=== PATIENT | female | born 1980 | race Caucasian/White ===

== ENCOUNTER 2017-03-17 11:38 | Emergency (ER) | payer MEDICAID ==
[~2017-03-17] VITALS: Ht 157.5 cm; Wt 78.7 kg
[~2017-03-17 11:38] MED LIST: SULF1TAB24 PO
[2017-03-17] MEDS ORDERED: ONDANSETRON ODT 4 MG ONE (12:17)
[2017-03-17] MEDS ORDERED: ONDANSETRON ODT 4 MG PO ONE (12:30)
[2017-03-17 12:52] VITALS: BP 117/76
== END 2017-03-17 12:55 | disposition home or self-care (01) ==
LOC: ED 12:27
DX: N30.01 Acute cystitis with hematuria (principal); F17.210 Nicotine dependence, cigarettes, uncomplicated; Z90.49 Acquired absence of other specified parts of digestive tract; Z90.710 Acquired absence of both cervix and uterus; Z88.0 Allergy status to penicillin; Z88.1 Allergy status to other antibiotic agents
CPT/HCPCS: 81001; 87077; 87086; 99284; Q0162; 87186

== ENCOUNTER 2017-04-04 01:29 | Emergency (ER) | payer MEDICAID ==
[~2017-04-04] VITALS: Ht 154.9 cm; Wt 78.6 kg
[2017-04-04] MEDS ORDERED: SODIUM CHLORIDE FLUSH 10ML SYR IVF ONE (02:00)
[2017-04-04] MEDS ORDERED: KETOROLAC 30 MG/1 ML IVPush ONE (02:00)
[2017-04-04] MEDS ORDERED: ONDANSETRON 2MG/ML, 2ML IVPush ONE (02:00)
[2017-04-04] MEDS ORDERED: HYDROmorphone 1 MG/ML, 1ML IVPush ONE (02:00)
[2017-04-04] MEDS ORDERED: SODIUM CHLORIDE 0.9% 1,000ML IVBOLUS ONE (02:00)
[2017-04-04] MEDS ORDERED: KETOROLAC 30 MG/1 ML ONE (02:09)
[2017-04-04] MEDS ORDERED: HYDROmorphone 1 MG/ML, 1ML ONE (02:09)
[2017-04-04] MEDS ORDERED: ONDANSETRON 2MG/ML, 2ML ONE (02:09)
[2017-04-04 02:44] LABS: BLOOD UREA NITROGEN 11 mg/dL (7-18)
[2017-04-04 03:16] LABS: PATH.CAST-FLAG NOT PRESENT; SPERM-FLAG NOT PRESENT; SRC-FLAG NOT PRESENT; XTAL-FLAG NOT PRESENT; YLC-FLAG NOT PRESENT
[2017-04-04 03:50] VITALS: BP 107/55
== END 2017-04-04 04:56 | disposition home or self-care (01) ==
LOC: ED 02:13
DX: N23 Unspecified renal colic (principal); Z90.710 Acquired absence of both cervix and uterus
CPT/HCPCS: 36415; 80048; 81001; 82040; 85025; 87077; 87086; 87186; 96361; 96374; 96375; 99284; J1170; J1885; J2405; J7030

== ENCOUNTER 2017-05-24 11:15 | Emergency (ER) | payer MEDICAID ==
[~2017-05-24] VITALS: Ht 154.9 cm; Wt 78.3 kg
[2017-05-24] MEDS ORDERED: ONDANSETRON 2MG/ML, 2ML IVPush ONE (12:30)
[2017-05-24] MEDS ORDERED: SODIUM CHLORIDE 0.9% 1,000ML IVBOLUS ONE (12:30)
[2017-05-24] MEDS ORDERED: SODIUM CHLORIDE FLUSH 10ML SYR IVF ONE (12:30)
[2017-05-24] MEDS ORDERED: ONDANSETRON 2MG/ML, 2ML ONE (12:36)
[2017-05-24] MEDS ORDERED: HYDROmorphone 1 MG/ML, 1ML IV ONE (13:00)
[2017-05-24] MEDS ORDERED: PHENAZOPYRIDINE 200 MG TABLET PO ONE (13:00)
[2017-05-24 13:04] LABS: BLOOD UREA NITROGEN 7 mg/dL (7-18)
[2017-05-24] MEDS ORDERED: PHENAZOPYRIDINE 200 MG TABLET ONE (13:12)
[2017-05-24] MEDS ORDERED: HYDROmorphone 1 MG/ML, 1ML ONE (13:12)
[2017-05-24 14:27] VITALS: BP 109/72
== END 2017-05-24 14:30 | disposition home or self-care (01) ==
LOC: ED 11:54
DX: N30.90 Cystitis, unspecified without hematuria (principal); Z90.710 Acquired absence of both cervix and uterus; Z90.49 Acquired absence of other specified parts of digestive tract; Z88.0 Allergy status to penicillin
CPT/HCPCS: 36415; 80048; 81001; 82040; 83605; 84145; 85025; 87040; 87077; 87086; 96361; 96374; 96375; 99284; J1170; J2405; J7030; 87186

== ENCOUNTER 2017-06-30 14:16 | Emergency (ER) | payer MEDICAID ==
[~2017-06-30] VITALS: Ht 157.5 cm; Wt 77.1 kg
[2017-06-30] MEDS ORDERED: ONDANSETRON 2MG/ML, 2ML IVPush ONE (15:00)
[2017-06-30] MEDS ORDERED: SODIUM CHLORIDE 0.9% 1,000ML IVBOLUS ONE (15:00)
[2017-06-30] MEDS ORDERED: SODIUM CHLORIDE FLUSH 10ML SYR IVF ONE (15:00)
[2017-06-30] MEDS ORDERED: HYDROmorphone 1 MG/ML, 1ML ONE ×2 (15:13→16:48)
[2017-06-30] MEDS ORDERED: ONDANSETRON 2MG/ML, 2ML ONE (15:13)
[2017-06-30 15:23] LABS: HEMATOCRIT 45.9 % (34.6-47.8); HEMOGLOBIN 15.4 g/dL (11.7-16.4); WHITE BLOOD COUNT 13.7 x10^3/uL (3.4-10)
[2017-06-30 15:34] LABS: BLOOD UREA NITROGEN 8 mg/dL (7-18)
[2017-06-30] MEDS: HYDROmorphone 1 MG/ML, 1ML IVPush PRN ×2 (16:02→17:02)
[2017-06-30] MEDS ORDERED: CEFTRIAXONE PMX 1GM/50ML 50 ML IV ONE (16:30)
[2017-06-30] MEDS ORDERED: PHENAZOPYRIDINE 200 MG TABLET PO ONE (16:30)
[2017-06-30] MEDS ORDERED: PHENAZOPYRIDINE 200 MG TABLET ONE (16:48)
[2017-06-30] MEDS ORDERED: CEFTRIAXONE PMX 1GM/50ML 50 ML ONE (16:48)
[2017-06-30 18:15] VITALS: BP 98/59
== END 2017-06-30 18:19 | disposition home or self-care (01) ==
LOC: ED 17:55
DX: N10 Acute pyelonephritis (principal); N30.00 Acute cystitis without hematuria; Z90.49 Acquired absence of other specified parts of digestive tract; Z90.710 Acquired absence of both cervix and uterus; Z88.8 Allergy status to other drugs, medicaments and biological substances; Z88.1 Allergy status to other antibiotic agents; Z88.5 Allergy status to narcotic agent; Z88.2 Allergy status to sulfonamides; Z91.018 Allergy to other foods
CPT/HCPCS: 36415; 80048; 81001; 82040; 85025; 87077; 87086; 87186; 96361; 96365; 96375; 96376; 99285; J0696; J1170; J2405; J7030

== ENCOUNTER 2017-07-26 18:30 | Emergency (ER) | payer MEDICAID ==
[~2017-07-26] VITALS: Ht 157.5 cm; Wt 77.7 kg
[2017-07-26] MEDS ORDERED: SODIUM CHLORIDE FLUSH 10ML SYR IVF ONE (19:00)
[2017-07-26] MEDS ORDERED: SODIUM CHLORIDE 0.9% 1,000ML IVBOLUS ONE (19:00)
[2017-07-26 19:15] LABS: HEMATOCRIT 49.8 % (34.6-47.8); HEMOGLOBIN 16.7 g/dL (11.7-16.4); WHITE BLOOD COUNT 8.8 x10^3/uL (3.4-10)
[2017-07-26 19:31] LABS: ASPARTATE AMINO TRANSFERASE 19 U/L (15-37); BLOOD UREA NITROGEN 13 mg/dL (7-18)
[2017-07-26] MEDS ORDERED: HYDROmorphone 1 MG/ML, 1ML ONE (20:34)
[2017-07-26] MEDS ORDERED: HYDROmorphone 1 MG/ML, 1ML IVPush PRN (21:00)
[2017-07-26 21:40] VITALS: BP 119/76
== END 2017-07-26 21:40 | disposition home or self-care (01) ==
LOC: ED 19:06
DX: N32.89 Other specified disorders of bladder (principal); Q61.5 Medullary cystic kidney; Z88.1 Allergy status to other antibiotic agents; Z88.0 Allergy status to penicillin; Z88.8 Allergy status to other drugs, medicaments and biological substances; Z90.710 Acquired absence of both cervix and uterus; Z90.49 Acquired absence of other specified parts of digestive tract
CPT/HCPCS: 36415; 80053; 81001; 83690; 84703; 85025; 87077; 87086; 87186; 96361; 96374; 99284; J1170; J7030

== ENCOUNTER 2017-07-28 23:00 | Inpatient (IN) | payer MEDICAID ==
[~2017-07-28] VITALS: Ht 157.5 cm; Wt 79.8 kg
[2017-07-28] MEDS ORDERED: ONDANSETRON ODT 4 MG PO ONE (23:30)
[2017-07-28] MEDS ORDERED: HYDROcodone/APAP 5/325 TABLET PO ONE (23:30)
[2017-07-28] MEDS ORDERED: KETOROLAC 30 MG/1 ML IM ONE (23:30)
[2017-07-28 23:46] LABS: HEMATOCRIT 46.9 % (34.6-47.8); HEMOGLOBIN 15.7 g/dL (11.7-16.4); WHITE BLOOD COUNT 9.4 x10^3/uL (3.4-10)
[2017-07-28] MEDS ORDERED: ONDANSETRON ODT 4 MG ONE (23:49)
[2017-07-28] MEDS ORDERED: HYDROcodone/APAP 5/325 TABLET ONE (23:50)
[2017-07-28] MEDS ORDERED: KETOROLAC 30 MG/1 ML ONE (23:50)
[2017-07-28 23:59] LABS: ASPARTATE AMINO TRANSFERASE 29 U/L (15-37); BLOOD UREA NITROGEN 14 mg/dL (7-18)
[2017-07-29 00:54] LABS: PATH.CAST-FLAG NOT PRESENT; SPERM-FLAG NOT PRESENT; SRC-FLAG NOT PRESENT; XTAL-FLAG NOT PRESENT; YLC-FLAG NOT PRESENT
[2017-07-29] MEDS ORDERED: SODIUM CHLORIDE 0.9% 1,000 ML IV ONE (01:50)
[2017-07-29] MEDS ORDERED: MORPHINE SULFATE 4 MG/ML, 1ML IVPush PRN (02:00)
[2017-07-29] MEDS ORDERED: CEFTRIAXONE PMX 1GM/50ML 50 ML IV ONE (02:00)
[2017-07-29] MEDS ORDERED: ONDANSETRON 2MG/ML, 2ML IVPush ONE (02:00)
[2017-07-29] MEDS ORDERED: SODIUM CHLORIDE FLUSH 10ML SYR IVF ONE (02:00)
[2017-07-29] MEDS ORDERED: morphine SULFATE 10 MG/ML, 1ML IVPush PRN (02:30)
[2017-07-29] MEDS ORDERED: ONDANSETRON 2MG/ML, 2ML IVPush PRN ×2 (02:30→12:30)
[2017-07-29] MEDS ORDERED: HYDROmorphone 1 MG/ML, 1ML IV PRN ×2 (02:30→12:30)
[2017-07-29] MEDS ORDERED: CEFTRIAXONE PMX 2GM/50ML 50 ML ONE (02:34)
[2017-07-29] MEDS: CEFTRIAXONE PMX 2GM/50ML 50 ML IV SCH (02:37)
[2017-07-29] MEDS ORDERED: HYDROmorphone 1 MG/ML, 1ML ONE ×2 (02:42→11:56)
[2017-07-29] MEDS ORDERED: ONDANSETRON 2MG/ML, 2ML ONE ×2 (02:42→11:56)
[2017-07-29 03:09] VITALS: BP 132/87
[2017-07-29] MEDS: SODIUM CHLORIDE 0.9% 1,000 ML IV SCH ×4 (03:41→23:36)
[2017-07-29 04:04] VITALS: BP 132/87
[2017-07-29] MEDS: HYDROmorphone 1 MG/ML, 1ML IV PRN ×5 (06:43→22:46)
[2017-07-29 07:05] VITALS: BP 101/70
[2017-07-29] MEDS: ENOXAPARIN 40 MG/0.4 ML SQ SCH (09:00)
[2017-07-29] MEDS ORDERED: SUCCINYLCHOLINE 20 MG/ML, 10ML ONE (11:56)
[2017-07-29] MEDS ORDERED: DEXAMETHASONE 4 MG/ML, 1ML ONE (11:56)
[2017-07-29] MEDS ORDERED: FENTANYL PF 100 MCG/2ML ONE (11:56)
[2017-07-29] MEDS ORDERED: ROCURONIUM 10 MG/ML ONE (11:56)
[2017-07-29] MEDS ORDERED: PROPOFOL 10 MG/ML, 20ML ONE (11:56)
[2017-07-29] MEDS ORDERED: LABETALOL 5MG/ML, 20ML IV PRN (12:30)
[2017-07-29] MEDS ORDERED: OXYcodone 5 MG/5 ML ORAL.SOL UDC PO PRN (12:30)
[2017-07-29] MEDS ORDERED: FENTANYL PF 100 MCG/2ML IV PRN (12:30)
[2017-07-29] MEDS ORDERED: ACETAMINOPHEN 325 MG TABLET PO PRN (12:30)
[2017-07-29] MEDS ORDERED: PROMETHAZINE 25 MG/ML, 1ML IV PRN (12:30)
[2017-07-29] MEDS ORDERED: hydrALAzine 20 MG/ML, 1ML IV PRN (12:30)
[2017-07-29] MEDS ORDERED: MIDAZOLAM 1 MG/ML, 2ML IV PRN (12:30)
[2017-07-29] MEDS ORDERED: MEPERIDINE/PF 25MG/0.5ML IVPush PRN (12:30)
[2017-07-29 14:35] VITALS: BP 107/73
[2017-07-29 14:46] VITALS: BP 102/59
[2017-07-29 20:24] VITALS: BP 107/77
[2017-07-29] MEDS: PHENAZOPYRIDINE 200 MG TABLET PO PRN (21:30)
[2017-07-30] MEDS: CEFTRIAXONE PMX 2GM/50ML 50 ML IV SCH (02:15)
[2017-07-30] MEDS: HYDROmorphone 1 MG/ML, 1ML IV PRN ×2 (02:54→07:43)
[2017-07-30 03:59] VITALS: BP 102/69
[2017-07-30] MEDS: PHENAZOPYRIDINE 200 MG TABLET PO PRN (05:12)
[2017-07-30 06:09] LABS: HEMATOCRIT 41.9 % (34.6-47.8); HEMOGLOBIN 13.9 g/dL (11.7-16.4); WHITE BLOOD COUNT 12.6 x10^3/uL (3.4-10)
[2017-07-30 06:23] LABS: BLOOD UREA NITROGEN 18 mg/dL (7-18)
[2017-07-30 07:25] VITALS: BP 115/77
[2017-07-30] MEDS: ENOXAPARIN 40 MG/0.4 ML SQ SCH (09:56)
[2017-07-30] MEDS ORDERED: HYDR-3240 PO (10:47)
[2017-07-30] MEDS ORDERED: CEFD300C37 PO (10:47)
[2017-07-30] MEDS ORDERED: HYDROcodone/APAP 5/325 TABLET PO ONE (11:00)
[2017-07-30] MEDS ORDERED: CALCIUM CARBONATE 500 MG TAB.CHEW PO ONE (11:00)
[2017-07-30 12:26] VITALS: BP 112/77
== END 2017-07-30 13:16 | disposition home or self-care (01) | DRG 669 ==
LOC: ED 23:29 → EDIP 07-29 02:05 → 4NOR 07-29 03:02 → DCLOUNGE 07-30 12:54
PROVIDERS: ADMIT Internal Medicine; ATTEND Internal Medicine
PROC: 0T778DZ Dilation of Left Ureter with Intraluminal Device, Via Natural or Artificial Opening Endoscopic (ICD-10-PCS; 2017-07-29)
PROC: 0TC78ZZ Extirpation of Matter from Left Ureter, Via Natural or Artificial Opening Endoscopic (ICD-10-PCS; principal; 2017-07-29 12:00)
DX: N13.2 Hydronephrosis with renal and ureteral calculous obstruction (principal); F17.200 Nicotine dependence, unspecified, uncomplicated; N10 Acute pyelonephritis; K42.9 Umbilical hernia without obstruction or gangrene; N28.1 Cyst of kidney, acquired; Z87.442 Personal history of urinary calculi; Z90.710 Acquired absence of both cervix and uterus
CPT/HCPCS: 36415; 74176; 80048; 80053; 81001; 82360; 84703; 85025; 87086; 88300; 99285; C1726; J0696; J1100; J1170; J1650; J2405; J2704; J3010; Q0162; C1769; C2617; J0330; J7030

== ENCOUNTER 2017-08-01 00:38 | Emergency (ER) | payer MEDICAID ==
[~2017-08-01] VITALS: Ht 157.5 cm; Wt 80.7 kg
[~2017-08-01 00:38] MED LIST changes: +CEFD300C37 PO; +HYDR-3240 PO
[2017-08-01] MEDS ORDERED: SODIUM CHLORIDE 0.9% 1,000ML IV ONE (01:00)
[2017-08-01] MEDS ORDERED: KETOROLAC 30 MG/1 ML IVPush ONE (01:00)
[2017-08-01] MEDS ORDERED: ONDANSETRON 2MG/ML, 2ML IVPush ONE (01:00)
[2017-08-01] MEDS ORDERED: SODIUM CHLORIDE FLUSH 10ML SYR IVF ONE (01:00)
[2017-08-01] MEDS ORDERED: HYDROmorphone 1 MG/ML, 1ML ONE ×2 (01:06→01:39)
[2017-08-01] MEDS ORDERED: KETOROLAC 30 MG/1 ML ONE (01:06)
[2017-08-01] MEDS ORDERED: ONDANSETRON 2MG/ML, 2ML ONE (01:06)
[2017-08-01 01:19] LABS: PATH.CAST-FLAG NOT PRESENT; SPERM-FLAG NOT PRESENT; SRC-FLAG NOT PRESENT; XTAL-FLAG NOT PRESENT; YLC-FLAG NOT PRESENT
[2017-08-01 01:23] LABS: HEMATOCRIT 48.6 % (34.6-47.8); HEMOGLOBIN 16.3 g/dL (11.7-16.4); WHITE BLOOD COUNT 12.2 x10^3/uL (3.4-10)
[2017-08-01] MEDS: HYDROmorphone 1 MG/ML, 1ML IVPush PRN ×2 (01:23→01:49)
[2017-08-01 01:33] LABS: BLOOD UREA NITROGEN 15 mg/dL (7-18)
[2017-08-01 01:38] LABS: ASPARTATE AMINO TRANSFERASE 61 U/L (15-37)
[2017-08-01 02:48] VITALS: BP 102/78
== END 2017-08-01 03:39 | disposition home or self-care (01) ==
LOC: ED 01:41
DX: R10.9 Unspecified abdominal pain (principal); N20.2 Calculus of kidney with calculus of ureter; Z90.710 Acquired absence of both cervix and uterus; Z90.49 Acquired absence of other specified parts of digestive tract; Z88.1 Allergy status to other antibiotic agents
CPT/HCPCS: 36415; 74000; 76770; 80053; 81001; 84703; 85025; 87086; 96361; 96374; 96375; 99285; J1170; J1885; J2405; J7030

== ENCOUNTER 2017-10-10 22:34 | Emergency (ER) | payer MEDICAID ==
[~2017-10-10] VITALS: Ht 157.5 cm; Wt 80.1 kg
[2017-10-10] MEDS ORDERED: SODIUM CHLORIDE 0.9% 1,000 ML IV ONE (23:19)
[2017-10-10] MEDS ORDERED: SODIUM CHLORIDE 0.9% 1,000ML IVBOLUS ONE (23:30)
[2017-10-10] MEDS ORDERED: ONDANSETRON 2MG/ML, 2ML IVPush ONE (23:30)
[2017-10-10] MEDS ORDERED: SODIUM CHLORIDE FLUSH 10ML SYR IVF ONE (23:30)
[2017-10-10] MEDS: HYDROmorphone 1 MG/ML, 1ML IVPush PRN (23:44)
[2017-10-10 23:48] LABS: HEMATOCRIT 45.1 % (34.6-47.8); HEMOGLOBIN 15.4 g/dL (11.7-16.4); WHITE BLOOD COUNT 6.6 x10^3/uL (3.4-10)
[2017-10-10 23:53] LABS: BLOOD UREA NITROGEN 11 mg/dL (7-18)
[2017-10-11] MEDS ORDERED: LORazepam 2 MG/ML, 1ML IVPush ONE
[2017-10-11] MEDS: HYDROmorphone 1 MG/ML, 1ML IVPush PRN (01:18)
[2017-10-11 03:28] VITALS: BP 106/68
== END 2017-10-11 03:36 | disposition home or self-care (01) ==
LOC: ED 10-11 00:11
DX: N93.9 Abnormal uterine and vaginal bleeding, unspecified (principal); F17.200 Nicotine dependence, unspecified, uncomplicated; Z90.49 Acquired absence of other specified parts of digestive tract
CPT/HCPCS: 36415; 76830; 80048; 82040; 85025; 96361; 96374; 96375; 96376; 99285; J1170; J2060; J2405; J7030

== ENCOUNTER 2018-02-12 11:23 | Emergency (ER) | payer MEDICAID ==
[~2018-02-12] VITALS: Ht 154.9 cm; Wt 84.3 kg
[2018-02-12] MEDS ORDERED: SERT25TA PO (11:51)
[2018-02-12] MEDS ORDERED: TAMS-11 PO (11:51)
[2018-02-12] MEDS ORDERED: SODIUM CHLORIDE FLUSH 10ML SYR IVF ONE (12:00)
[2018-02-12 12:41] LABS: BASOPHILS # (AUTO) 0.08 x10^3/uL (0-0.1); BASOPHILS % (AUTO) 1 % (0-1); EOSINOPHILS # (AUTO) 0.21 x10^3/uL (0-0.4); EOSINOPHILS % (AUTO) 3 % (1-7); LYMPHOCYTES # (AUTO) 2.42 x10^3/uL (1-3.4); LYMPHOCYTES % (AUTO) 34 % (22-44); MD NO; MEAN CORPUSCULAR HEMOGLOBIN 34.3 pg (27.0-34.8); MEAN CORPUSCULAR HGB CONC 34.1 g/dL (32.4-35.8); MEAN CORPUSCULAR VOLUME 100.5 fL (80-100); MEAN PLATELET VOLUME 7.9 fL (7.4-10.4); MONOCYTES % (AUTO) 7 % (2-9); NEUTROPHILS # (AUTO) 3.92 x10^3/uL (1.8-6.8); NEUTROPHILS % (AUTO) 55 % (42-75); PLATELET COUNT 345 x10^3/uL (130-400); RED BLOOD COUNT 4.23 x10^6/uL (3.82-5.3); RED CELL DISTRIBUTION WIDTH 13.8 % (9.6-15.2)
[2018-02-12 12:49] LABS: INTERNATIONAL NORMALIZED RATIO 0.95 (0.93-1.1); PROTHROMBIN TIME 9.8 Seconds (9.6-11.5)
[2018-02-12 12:54] LABS: ALANINE AMINOTRANSFERASE 24 U/L (12-78); ALBUMIN 3.9 g/dL (3.4-5.0); ANION GAP 8 mmol/L (5-15); CALCIUM 9.2 mg/dL (8.5-10.1); CHLORIDE 103 mmol/L (98-107); CREATININE 0.83 mg/dL (0.55-1.02)
[2018-02-12 12:58] LABS: ALKALINE PHOSPHATASE 69 U/L (45-117); BILIRUBIN,TOTAL 0.5 mg/dL (0.2-1.0); TOTAL PROTEIN 7.9 g/dL (6.4-8.2); TROPONIN I < 0.015 ng/mL (0.000-0.045)
[2018-02-12] MEDS ORDERED: ONDANSETRON ODT 4 MG ONE (12:58)
[2018-02-12] MEDS ORDERED: FENTANYL PF 100 MCG/2ML ONE (12:59)
[2018-02-12] MEDS ORDERED: ONDANSETRON ODT 4 MG PO ONE (13:00)
[2018-02-12] MEDS ORDERED: FENTANYL PF 100 MCG/2ML IV ONE ×2 (13:00→15:00)
[2018-02-12 14:12] LABS: MICROSCOPIC INDICATED
[2018-02-12 14:42] LABS: CULTURE INDICATED? YES
[2018-02-12] MEDS ORDERED: MORPHINE SULFATE 4 MG/ML, 1ML ONE ×2 (16:06→16:14)
[2018-02-12] MEDS ORDERED: DIPHENHYDRAMINE 50 MG/ML, 1ML ONE (16:06)
[2018-02-12] MEDS ORDERED: DIPHENHYDRAMINE 50 MG/ML, 1ML IVPush ONE (16:30)
[2018-02-12] MEDS ORDERED: MORPHINE SULFATE 4 MG/ML, 1ML IVPush PRN (16:30)
[2018-02-12] MEDS ORDERED: OMNIPAQUE 350 MG/ML, 100ML BOTTLE ONE (17:02)
[2018-02-12 17:31] VITALS: BP 113/54
== END 2018-02-12 17:51 | disposition home or self-care (01) ==
LOC: ED 13:24
DX: N30.00 Acute cystitis without hematuria (principal); R10.11 Right upper quadrant pain; Z90.710 Acquired absence of both cervix and uterus; Z87.442 Personal history of urinary calculi
CPT/HCPCS: 36415; 71046; 71275; 74176; 80053; 81001; 83605; 84484; 85025; 85610; 85730; 87040; 87077; 87086; 93005; 96374; 96375; 96376; 99285; J1200; J3010; Q0162; Q9967; 87186

== ENCOUNTER 2018-06-12 19:22 | Emergency (ER) | payer MEDICAID, OTHER ==
[~2018-06-12] VITALS: Ht 154.9 cm; Wt 86.2 kg
[~2018-06-12 19:22] MED LIST changes: +SERT25TA PO; +TAMS-11 PO
[2018-06-12 20:59] VITALS: BP 154/78
== END 2018-06-12 21:02 | disposition home or self-care (01) ==
LOC: ED 20:56
DX: S06.0X0A Concussion without loss of consciousness, initial encounter (principal); F17.200 Nicotine dependence, unspecified, uncomplicated; V59.59XA Passenger in pick-up truck or van injured in collision with other motor vehicles in traffic accident, initial encounter; Y93.89 Activity, other specified; Y99.8 Other external cause status; Y92.410 Unspecified street and highway as the place of occurrence of the external cause
CPT/HCPCS: 70450; 99284

== ENCOUNTER 2018-06-28 11:47 | Emergency (ER) | payer MEDICAID, OTHER ==
[~2018-06-28] VITALS: Ht 154.9 cm; Wt 87.1 kg
[2018-06-28 11:53] VITALS: BP 122/72
[2018-06-28] MEDS ORDERED: DEXAMETHASONE 4 MG TABLET ONE (12:21)
[2018-06-28] MEDS ORDERED: DEXAMETHASONE 4 MG TABLET PO ONE (12:30)
== END 2018-06-28 12:39 | disposition home or self-care (01) ==
LOC: ED 12:33
DX: J02.9 Acute pharyngitis, unspecified (principal); K12.0 Recurrent oral aphthae; F17.200 Nicotine dependence, unspecified, uncomplicated; H92.09 Otalgia, unspecified ear; R21 Rash and other nonspecific skin eruption; Z90.49 Acquired absence of other specified parts of digestive tract; Z90.710 Acquired absence of both cervix and uterus
CPT/HCPCS: 99283

== ENCOUNTER 2018-08-06 19:31 | Emergency (ER) | payer MEDICAID, OTHER ==
[~2018-08-06] VITALS: Ht 154.9 cm; Wt 84.7 kg
[2018-08-06 19:32] VITALS: BP 119/83
[2018-08-06] MEDS ORDERED: ONDANSETRON ODT 4 MG PO ONE (20:00)
[2018-08-06] MEDS ORDERED: SODIUM CHLORIDE FLUSH 10ML SYR IVF ONE (20:00)
[2018-08-06] MEDS ORDERED: SODIUM CHLORIDE 0.9% 1,000ML IVBOLUS ONE (20:00)
[2018-08-06] MEDS ORDERED: HYDROmorphone 2 MG/ML, 1ML ONE (20:18)
[2018-08-06] MEDS ORDERED: ONDANSETRON ODT 4 MG ONE (20:18)
[2018-08-06] MEDS ORDERED: HYDROmorphone 2 MG/ML, 1ML IVPush PRN (20:30)
[2018-08-06 20:31] LABS: BASOPHILS % (AUTO) 0 % (0-1); EOSINOPHILS # (AUTO) 0.27 x10^3/uL (0-0.4); EOSINOPHILS % (AUTO) 2 % (1-7); LYMPHOCYTES # (AUTO) 1.76 x10^3/uL (1-3.4); LYMPHOCYTES % (AUTO) 15 % (22-44); MD NO; MEAN CORPUSCULAR HEMOGLOBIN 32.5 pg (27.0-34.8); MEAN CORPUSCULAR HGB CONC 33.9 g/dL (32.4-35.8); MEAN CORPUSCULAR VOLUME 95.9 fL (80-100); MEAN PLATELET VOLUME 8.3 fL (7.4-10.4); MONOCYTES # (AUTO) 0.25 x10^3/uL (0.2-0.8); MONOCYTES % (AUTO) 2 % (2-9); NEUTROPHILS # (AUTO) 9.33 x10^3/uL (1.8-6.8); NEUTROPHILS % (AUTO) 80 % (42-75); PLATELET COUNT 310 x10^3/uL (130-400); RED CELL DISTRIBUTION WIDTH 13.9 % (9.6-15.2)
[2018-08-06 20:32] LABS: CULTURE INDICATED? YES; MICROSCOPIC INDICATED
[2018-08-06 20:34] LABS: ALANINE AMINOTRANSFERASE 24 U/L (12-78); ALBUMIN 3.8 g/dL (3.4-5.0); ANION GAP 8 mmol/L (5-15); CALCIUM 8.9 mg/dL (8.5-10.1); CHLORIDE 110 mmol/L (98-107); CREATININE 0.76 mg/dL (0.55-1.02)
[2018-08-06 20:36] LABS: ALKALINE PHOSPHATASE 86 U/L (45-117); BILIRUBIN,TOTAL 0.3 mg/dL (0.2-1.0); TOTAL PROTEIN 7.8 g/dL (6.4-8.2)
[2018-08-06] MEDS ORDERED: KETOROLAC 30 MG/1 ML IVPush ONE (21:30)
[2018-08-06] MEDS ORDERED: KETOROLAC 30 MG/1 ML ONE (21:43)
== END 2018-08-06 22:04 | disposition home or self-care (01) ==
LOC: ED 20:13
DX: N39.0 Urinary tract infection, site not specified (principal); Z87.442 Personal history of urinary calculi
CPT/HCPCS: 36415; 76770; 80053; 81001; 85025; 87077; 87086; 96374; 96375; 99285; J1170; J1885; J7030; Q0162; 87186

== ENCOUNTER 2018-12-20 12:32 | Observation (INO) | payer SELFPAY ==
[~2018-12-20] VITALS: Ht 154.9 cm; Wt 83.1 kg
--- NOTE | 2018-12-20 13:04 | NUR ---
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
--- NOTE | 2018-12-20 13:15 | NUR ---
PT TO ROOM FROM LOBBY
[2018-12-20] MEDS ORDERED: ONDANSETRON 2MG/ML, 2ML ONE (13:28)
[2018-12-20] MEDS ORDERED: ONDANSETRON 2MG/ML, 2ML IVPush ONE (13:30)
[2018-12-20] MEDS ORDERED: SODIUM CHLORIDE 0.9% 1,000ML IVBOLUS ONE (13:30)
[2018-12-20] MEDS ORDERED: SODIUM CHLORIDE FLUSH 10ML SYR IVF ONE (13:30)
--- NOTE | 2018-12-20 13:37 | NUR ---
pt presents to ed with c/o n/v with right flank pain since yesterday pm. pt a&o, resps even and unlabored. piv placed, pt medicated per emar. pt requesting pain med, notified. bp and spo2 monitors in place. call light in reach. awaiting lab/ct and dispo.
[2018-12-20 13:38] LABS: BASOPHILS # (AUTO) 0.05 x10^3/uL (0-0.1); BASOPHILS % (AUTO) 0 % (0-1); EOSINOPHILS % (AUTO) 0 % (1-7); LYMPHOCYTES # (AUTO) 1.39 x10^3/uL (1-3.4); LYMPHOCYTES % (AUTO) 10 % (22-44); MD NO; MEAN CORPUSCULAR HEMOGLOBIN 32.1 pg (27.0-34.8); MEAN CORPUSCULAR HGB CONC 33.3 g/dL (32.4-35.8); MEAN CORPUSCULAR VOLUME 96.4 fL (80-100); MONOCYTES # (AUTO) 0.39 x10^3/uL (0.2-0.8); MONOCYTES % (AUTO) 3 % (2-9); NEUTROPHILS # (AUTO) 12.34 x10^3/uL (1.8-6.8); NEUTROPHILS % (AUTO) 87 % (42-75); PLATELET COUNT 339 x10^3/uL (130-400); RED BLOOD COUNT 4.59 x10^6/uL (3.82-5.3)
[2018-12-20] MEDS ORDERED: KETOROLAC 30 MG/1 ML ONE ×2 (13:41→14:09)
[2018-12-20] MEDS ORDERED: DIAZEPAM 5 MG TABLET ONE (13:41)
--- NOTE | 2018-12-20 13:45 | NUR ---
PT TO US
[2018-12-20 13:51] LABS: ALANINE AMINOTRANSFERASE 18 U/L (12-78); ALBUMIN 4.2 g/dL (3.4-5.0); ANION GAP 9 mmol/L (5-15); CALCIUM 9.3 mg/dL (8.5-10.1); CHLORIDE 109 mmol/L (98-107); CREATININE 0.85 mg/dL (0.55-1.02)
[2018-12-20 13:54] LABS: ALKALINE PHOSPHATASE 76 U/L (45-117); BILIRUBIN,TOTAL 0.4 mg/dL (0.2-1.0); TOTAL PROTEIN 8.2 g/dL (6.4-8.2)
[2018-12-20] MEDS ORDERED: KETOROLAC 30 MG/1 ML IVPush ONE (14:00)
[2018-12-20] MEDS ORDERED: PROMETHAZINE 25 MG/ML, 1ML ONE (14:11)
--- NOTE | 2018-12-20 14:18 | NUR ---
PT BACK FROM US WITH PERSISTENT NAUSEA AND EMESIS X1. EDMD NOTIFIED. PT MEDICATED PER EMAR, TOLERATED WELL. PT GIVEN INSTRUCTIONS TO PROVIDE CLEAN CATCH UA. AWAITING US RESULTS AND UA AT THIS TIME.
[2018-12-20] MEDS ORDERED: PROMETHAZINE 25 MG/ML, 1ML IM ONE ×2 (14:30→20:00)
--- NOTE | 2018-12-20 14:34 | NUR ---
UA COLLECTED AND SENT TO LAB. PT ON BP AND SPO2 MONITORS. AWAITING UA AND DISPO.
[2018-12-20 14:47] LABS: MICROSCOPIC INDICATED
[2018-12-20 15:04] LABS: CULTURE INDICATED? NO
[2018-12-20] MEDS ORDERED: METOCLOPRAMIDE 5 MG/ML, 2ML ONE (15:09)
[2018-12-20] MEDS ORDERED: FENTANYL PF 100 MCG/2ML ONE (15:10)
--- NOTE | 2018-12-20 15:18 | NUR ---
pt notes 7/10 generalized abd pain and persistent nausea. edmd aware. pt medicated per emar, tolerated well. pt to be admitted, awaiting bed assignement and transport. bp and spo2 monitors in place. pt updated with poc. pt remains a&o, resps even and unlabored, nadn at this time.
[2018-12-20 15:27] LABS: HCG UR SG 1.027 (1.003-1.030)
[2018-12-20] MEDS ORDERED: FENTANYL PF 100 MCG/2ML IV ONE (15:30)
[2018-12-20] MEDS ORDERED: METOCLOPRAMIDE 5 MG/ML, 2ML IVPush ONE (15:30)
--- NOTE | 2018-12-20 15:50 | NUR ---
REPORT GIVEN TO RECEIVING TREASURE KENYON PT AWAITING TRANSPOR TO ROOM 358.
--- NOTE | 2018-12-20 15:52 | NUR ---
pt reports pain level 4/10 at this time. pt a&o, resps even and unlabored. pt placed on 2L oxygen via nc d/t fentanyl given. pt en route to 368 at this time. pt transported to room with clothes and cell phone.
[2018-12-20] MEDS: ONDANSETRON 2MG/ML, 2ML IVPush PRN (17:55)
[2018-12-20] MEDS ORDERED: ACETAMINOPHEN 325 MG TABLET PO PRN (18:00)
[2018-12-20] MEDS ORDERED: METOCLOPRAMIDE 5 MG/ML, 2ML IVPush PRN (18:00)
[2018-12-20] MEDS ORDERED: LIDODERM 5% PATCH TD PRN (18:00)
[2018-12-20] MEDS ORDERED: hydrALAzine 20 MG/ML, 1ML IVPush PRN (18:00)
[2018-12-20] MEDS ORDERED: ONDANSETRON ODT 4 MG PO PRN (18:00)
[2018-12-20] MEDS ORDERED: GUAIFENESIN/DM 200-20MG, 10ML UDC PO PRN (18:00)
[2018-12-20] MEDS ORDERED: PROMETHAZINE 25MG TABLET PO PRN ×2 (18:00→21:30)
[2018-12-20] MEDS ORDERED: OMNIPAQUE 350 MG/ML, 100ML BOTTLE ONE (18:25)
[2018-12-20 18:26] VITALS: BP 135/87
[2018-12-20] MEDS: METOCLOPRAMIDE 5 MG/ML, 2ML IVPush PRN (18:40)
[2018-12-20 20:09] VITALS: BP 133/84
[2018-12-20] MEDS: KETOROLAC 30 MG/1 ML IV PRN (20:15)
[2018-12-20] MEDS ORDERED: SODIUM CHLORIDE 0.9% 1,000 ML IV SCH (20:30)
[2018-12-20] MEDS ORDERED: DOCUSATE 100 MG CAPSULE PO PRN (21:00)
[2018-12-21] MEDS: ONDANSETRON 2MG/ML, 2ML IVPush PRN ×2 (00:11→12:32)
[2018-12-21 01:25] VITALS: BP 130/65
[2018-12-21 03:18] LABS: AMPHETAMINE SCREEN, URINE Negative (Negative); BARBITURATE SCREEN, URINE Positive (Negative); BENZODIAZEPINE SCREEN, URINE Positive (Negative); CANNABINOID SCREEN, URINE Positive (Negative); COCAINE SCREEN, URINE Negative (Negative); METHADONE SCREEN, URINE Negative (Negative); OPIATE SCREEN, URINE Positive (Negative)
[2018-12-21] MEDS: SODIUM CHLORIDE 0.9% 1,000 ML IV SCH ×2 (04:07→12:32)
[2018-12-21] MEDS: METOCLOPRAMIDE 5 MG/ML, 2ML IVPush PRN ×3 (04:17→15:23)
[2018-12-21] MEDS: KETOROLAC 30 MG/1 ML IV PRN (04:17)
[2018-12-21 05:03] LABS: ANION GAP 7 mmol/L (5-15); CHLORIDE 109 mmol/L (98-107); CREATININE 0.91 mg/dL (0.55-1.02)
[2018-12-21 05:24] LABS: BASOPHILS # (AUTO) 0.05 x10^3/uL (0-0.1); BASOPHILS % (AUTO) 0 % (0-1); EOSINOPHILS # (AUTO) 0.06 x10^3/uL (0-0.4); EOSINOPHILS % (AUTO) 1 % (1-7); LYMPHOCYTES # (AUTO) 3.84 x10^3/uL (1-3.4); LYMPHOCYTES % (AUTO) 30 % (22-44); MD NO; MEAN CORPUSCULAR HEMOGLOBIN 32.7 pg (27.0-34.8); MEAN CORPUSCULAR HGB CONC 33.3 g/dL (32.4-35.8); MEAN CORPUSCULAR VOLUME 98.2 fL (80-100); MEAN PLATELET VOLUME 8.1 fL (7.4-10.4); MONOCYTES # (AUTO) 1.03 x10^3/uL (0.2-0.8); MONOCYTES % (AUTO) 8 % (2-9); NEUTROPHILS # (AUTO) 7.77 x10^3/uL (1.8-6.8); NEUTROPHILS % (AUTO) 61 % (42-75); PLATELET COUNT 288 x10^3/uL (130-400); RED BLOOD COUNT 3.88 x10^6/uL (3.82-5.3); RED CELL DISTRIBUTION WIDTH 14.3 % (9.6-15.2)
[2018-12-21] MEDS ORDERED: PANTOPROZOLE 40MG TABLET PO SCH (07:30)
[2018-12-21 08:54] VITALS: BP 97/67
[2018-12-21] MEDS ORDERED: PINK LADY ENEMA 490 ML BOTTLE PR ONE (09:00)
[2018-12-21] MEDS ORDERED: MAGNESIUM CITRATE 300ML ORAL SOL PO PRN (09:00)
[2018-12-21] MEDS ORDERED: SODIUM CHLORIDE 0.9%, 500ML IVBOLUS ONE (12:00)
[2018-12-21] MEDS ORDERED: BISACODYL 10 MG SUPP PR ONE (14:00)
[2018-12-21 14:56] VITALS: BP 108/76
[2018-12-21] MEDS ORDERED: ONDA4TAB13 PO (15:21)
== END 2018-12-21 16:44 | disposition home or self-care (01) ==
LOC: ED 15:08 → INTOOBSV 15:09 → EDIP 15:09 → ED 15:40 → 3NE 15:59 → DCLOUNGE 12-21 16:38
PROVIDERS: ADMIT Hospitalist; ATTEND Hospitalist
DX: R11.2 Nausea with vomiting, unspecified (principal); R10.9 Unspecified abdominal pain; D72.829 Elevated white blood cell count, unspecified; K43.9 Ventral hernia without obstruction or gangrene; K59.00 Constipation, unspecified; K76.89 Other specified diseases of liver; Z87.442 Personal history of urinary calculi; Z90.49 Acquired absence of other specified parts of digestive tract; Z90.710 Acquired absence of both cervix and uterus
CPT/HCPCS: 36415; 74018; 74177; 76770; 80048; 80053; 80307; 81001; 81025; 83690; 85025; 96361; 96374; 96375; 96376; 99284; G0378; J1885; J2405; J2550; J2765; J3010; J7030; Q0169; Q9967

== ENCOUNTER 2019-03-09 20:29 | Emergency (ER) | payer SELFPAY ==
[~2019-03-09] VITALS: Ht 154.9 cm; Wt 91.4 kg
[~2019-03-09 20:29] MED LIST changes: +ONDA4TAB13 PO
[2019-03-09] MEDS ORDERED: ONDANSETRON 2MG/ML, 2ML IVPush ONE (21:00)
[2019-03-09] MEDS ORDERED: OMNIPAQUE 350 MG/ML, 100ML BOTTLE ONE (21:00)
[2019-03-09] MEDS ORDERED: SODIUM CHLORIDE FLUSH 10ML SYR IVF ONE (21:00)
[2019-03-09] MEDS ORDERED: ONDANSETRON 2MG/ML, 2ML ONE (21:04)
[2019-03-09] MEDS ORDERED: HYDROmorphone 1 MG/ML, 1ML VIAL ONE ×2 (21:05→22:43)
[2019-03-09] MEDS: HYDROmorphone 2 MG/ML, 1ML IVPush PRN ×2 (21:19→22:45)
[2019-03-09] MEDS ORDERED: SERT25TA3 PO (21:25)
[2019-03-09 21:28] LABS: BASOPHILS # (AUTO) 0.05 x10^3/uL (0-0.1); BASOPHILS % (AUTO) 1 % (0-1); EOSINOPHILS # (AUTO) 0.26 x10^3/uL (0-0.4); EOSINOPHILS % (AUTO) 4 % (1-7); LYMPHOCYTES # (AUTO) 2.44 x10^3/uL (1-3.4); LYMPHOCYTES % (AUTO) 38 % (22-44); MD NO; MEAN CORPUSCULAR HEMOGLOBIN 33.6 pg (27.0-34.8); MEAN CORPUSCULAR HGB CONC 34.6 g/dL (32.4-35.8); MEAN PLATELET VOLUME 7.7 fL (7.4-10.4); MONOCYTES # (AUTO) 0.46 x10^3/uL (0.2-0.8); MONOCYTES % (AUTO) 7 % (2-9); NEUTROPHILS # (AUTO) 3.23 x10^3/uL (1.8-6.8); NEUTROPHILS % (AUTO) 50 % (42-75); PLATELET COUNT 287 x10^3/uL (130-400); RED BLOOD COUNT 3.63 x10^6/uL (3.82-5.3); RED CELL DISTRIBUTION WIDTH 14.9 % (9.6-15.2)
--- NOTE | 2019-03-09 21:31 | NUR ---
IV STARTED, ORDERED MEDS GIVEN. PT ON VITALS MONITORS AND IN HOSPITAL GOWN. URINE SENT TO LAB. PT ABLE TO AMBULATE TO THE BATHROOM STEADILY TO PROVIDE URINE SAMPLE.
[2019-03-09 21:40] LABS: ALANINE AMINOTRANSFERASE 20 U/L (12-78); ALBUMIN 3.4 g/dL (3.4-5.0); ANION GAP 4 mmol/L (5-15); CHLORIDE 113 mmol/L (98-107)
[2019-03-09 21:43] LABS: ALKALINE PHOSPHATASE 60 U/L (45-117); BILIRUBIN,TOTAL 0.3 mg/dL (0.2-1.0); TOTAL PROTEIN 6.4 g/dL (6.4-8.2)
[2019-03-09 21:49] LABS: MICROSCOPIC INDICATED
[2019-03-09 22:02] LABS: CULTURE INDICATED? NO
--- NOTE | 2019-03-09 22:41 | NUR ---
PT BACK FROM CT. PT C/O ABD PAIN. WILL MEDICATE PER EMAR. ALL RESULTS BACK, PT UP FOR RECHECK.
[2019-03-09 23:53] VITALS: BP 102/58
== END 2019-03-09 23:55 | disposition home or self-care (01) ==
LOC: ED 21:35
DX: K42.9 Umbilical hernia without obstruction or gangrene (principal)
CPT/HCPCS: 36415; 74177; 80053; 81001; 83690; 85025; 96374; 96375; 96376; 99284; J1170; J2405; Q9967

== ENCOUNTER 2021-01-13 19:33 | Inpatient (IN) | payer OTHER, MEDICAID ==
[~2021-01-13] VITALS: Ht 154.9 cm; Wt 113.0 kg
[~2021-01-13 19:33] MED LIST changes: +HYDR-1067 PO; -HYDR-3240 PO; +SERT-331 PO
--- NOTE | 2021-01-13 20:01 | NUR ---
PT AMBULATED TO ROOM. C/O PAIN TO LEFT ARM, DIFFICULTY MOVING IT TO FULL MOTION. POSITIVE PULSE, AND CMS INTACT AND ABLE TO MOVE FINGERS, HEAD OPERATOR SULFIDE LESS THAN 2 SECONDS TO LEFT HAND.
[2021-01-13] MEDS ORDERED: HYDROmorphone 2 MG/ML, 1ML IM ONE (20:30)
[2021-01-13] MEDS ORDERED: ONDANSETRON ODT 4 MG PO ONE (20:30)
[2021-01-13] MEDS ORDERED: ONDANSETRON 2MG/ML, 2ML ONE (20:37)
[2021-01-13] MEDS ORDERED: HYDROmorphone 1 MG/ML, 1ML INJ ONE (20:37)
--- NOTE | 2021-01-13 20:50 | NUR ---
PT A&OX4, STILL COMPLAINS OF PAIN TO LEFT ELBOW. MD ORDERS REVISED, AND PIV STARTED TO RIGHT HAND X1 ATTEMPT, 18G. FLUSHED EASY AND SECURED. PAIN MEDS AND ANTI NAUSEA MEDS GIVEN TO PT SLOWLY. PT ON CR MONITOR
[2021-01-13] MEDS ORDERED: ONDANSETRON 2MG/ML, 2ML IVPush ONE (21:00)
[2021-01-13] MEDS ORDERED: HYDROmorphone 1 MG/ML, 1ML INJ IV ONE (21:00)
[2021-01-13] MEDS ORDERED: LORazepam 2 MG/ML, 1ML IVPush ONE (21:00)
[2021-01-13] MEDS ORDERED: PROPOFOL 0 ML IV ONE (21:10)
[2021-01-13] MEDS ORDERED: PROPOFOL 10 MG/ML, 20ML ONE (21:11)
--- NOTE | 2021-01-13 21:15 | NUR ---
CONSCIOUS SEDATION BEGUN WITH DR LEDESMA AT BEDSIDE, AND ORTHO MD AT BEDSIDE. PT ON CR MONITOR, AND PLACED ON 2 LPM NC O2, AND CODE CART WITHIN REACH OF ROOM. AMBU BAG AND ALL EMERGENCY EQUIPMENT AT BEDSIDE, AND PROPOFOL GIVEN BY MD. PT SLEEPING COMFORTABLY, AND TOWEL ROLL PLACED FOR AIRWAY POSITIONING AND COMFORT. PTS VITAL SIGNS REMAINED WITHIN NORMAL LIMITS, SEE SEDATION SHEET.
[2021-01-13] MEDS ORDERED: SODIUM CHLORIDE FLUSH 10ML SYR IVF PRN (21:30)
[2021-01-13] MEDS ORDERED: PROPOFOL 10 MG/ML, 20ML IVPush ONE (21:30)
--- NOTE | 2021-01-13 21:30 | NUR ---
LEFT ARM SPLINTED BY ORTHO MD, AND CMS INTACT, ABLE TO MOVE FINGERS, AND ARM PLACED IN POSITION OF COMFORT AFTERWARDS. PT NOW AWAKENING AND CONVERSING AND STATES SHE DOES NOT REMEMBER THE ARM PLACEMENT. PT NOW A&OX4, GOOD AERATION AND OXYGENATION, REMAINS ON CR MONITOR.
--- NOTE | 2021-01-13 21:49 | NUR ---
PT IN NO ACUTE DISTRESS. RESTING COMFORTABY ON CR MONITOR.
--- NOTE | 2021-01-13 21:56 | NUR ---
REPORT CALLED TO FLOOR RN.
[2021-01-13 22:00] LABS: BASOPHILS % (AUTO) 1 % (0-1); EOSINOPHILS % (AUTO) 2 % (1-7); LYMPHOCYTES % (AUTO) 28 % (22-44); MEAN CORPUSCULAR HEMOGLOBIN 37.2 pg (27.0-34.8); MEAN CORPUSCULAR HGB CONC 34.1 g/dL (32.4-35.8); MONOCYTES % (AUTO) 5 % (2-9); NEUTROPHILS % (AUTO) 65 % (42-75); PLATELET COUNT 294 x10^3/uL (130-400); RED BLOOD COUNT 3.99 x10^6/uL (3.82-5.3); RED CELL DISTRIBUTION WIDTH 13.6 % (9.6-15.2)
[2021-01-13 22:07] LABS: MD MORPH REVIEW ONLY
[2021-01-13 22:11] LABS: ALBUMIN 4.1 g/dL (3.4-5.0); ANION GAP 10 mmol/L (5-15); CALCIUM 8.4 mg/dL (8.5-10.1); CHLORIDE 108 mmol/L (98-107); CREATININE 0.73 mg/dL (0.55-1.02)
[2021-01-13 22:29] VITALS: BP 120/83
[2021-01-13 22:39] LABS: <PLATELET ESTIMATE> ADEQUATE; <PLT MORPHOLOGY> NORMAL PLT MORPH
[2021-01-13] MEDS: ACETAMINOPHEN 500 MG TABLET PO SCH (22:40)
[2021-01-13] MEDS: OXYcodone IR 5MG TABLET PO PRN (22:41)
[2021-01-13] MEDS: HYDROmorphone 1 MG/ML, 1ML INJ IV PRN (23:02)
[2021-01-14] MEDS: HYDROmorphone 1 MG/ML, 1ML INJ IV PRN ×4 (01:34→09:36)
[2021-01-14 01:45] VITALS: BP 99/68
[2021-01-14] MEDS: KETOROLAC 30 MG/1 ML IVPush SCH ×3 (02:59→15:00)
[2021-01-14] MEDS: OXYcodone IR 5MG TABLET PO PRN ×3 (03:00→18:57)
[2021-01-14] MEDS: ACETAMINOPHEN 500 MG TABLET PO SCH ×2 (06:16→14:00)
[2021-01-14 07:57] VITALS: BP 100/75
[2021-01-14] MEDS ORDERED: CHLORHEXIDINE 15 ML UDC ONE (09:57)
[2021-01-14] MEDS ORDERED: CHLORHEXIDINE 15 ML UDC MM ONE (11:30)
[2021-01-14] MEDS ORDERED: MIDAZOLAM 1 MG/ML, 2ML ONE (12:10)
[2021-01-14] MEDS ORDERED: FENTANYL PF 100 MCG/2ML ONE ×2 (12:10→13:16)
[2021-01-14] MEDS ORDERED: SUCCINYLCHOLINE 20 MG/ML, 10ML ONE (12:14)
[2021-01-14] MEDS ORDERED: CEFAZOLIN 1,000 MG ONE (12:14)
[2021-01-14] MEDS ORDERED: NEOSTIGMINE 1 MG/ML, 10ML ONE (12:14)
[2021-01-14] MEDS ORDERED: GLYCOPYRROLATE 0.2MG/1ML, 5ML ONE (12:14)
[2021-01-14] MEDS ORDERED: PROPOFOL 10 MG/ML, 20ML ONE (12:14)
[2021-01-14] MEDS ORDERED: ONDANSETRON 2MG/ML, 2ML ONE (12:14)
[2021-01-14] MEDS ORDERED: ROCURONIUM 10MG/ML,5ML ONE (12:14)
[2021-01-14] MEDS ORDERED: CLINDAMYCIN 150 MG/ML, 6ML ONE (13:06)
[2021-01-14] MEDS ORDERED: MEPERIDINE/PF 25MG/0.5ML IVPush PRN (13:30)
[2021-01-14] MEDS ORDERED: ONDANSETRON 2MG/ML, 2ML IVPush PRN (13:30)
[2021-01-14] MEDS ORDERED: OXYcodone 5 MG/5 ML ORAL.SOL UDC PO PRN (13:30)
[2021-01-14] MEDS ORDERED: PROMETHAZINE 25 MG/ML, 1ML IVPush PRN (13:30)
[2021-01-14] MEDS ORDERED: HYDROcodone/APAP 7.5-325MG/15ML UDC PO PRN (13:30)
[2021-01-14] MEDS ORDERED: LORazepam 2 MG/ML, 1ML IVPush PRN (13:30)
[2021-01-14] MEDS ORDERED: FENTANYL PF 100 MCG/2ML IV PRN (13:30)
[2021-01-14] MEDS ORDERED: KETOROLAC 30 MG/1 ML IVPush PRN (13:30)
[2021-01-14] MEDS ORDERED: BUPIVACAINE/PF 0.25% INFIL ONE (14:30)
[2021-01-14] MEDS ORDERED: OXYcodone 5 MG/5 ML ORAL.SOL UDC ONE (14:51)
[2021-01-14] MEDS ORDERED: HYDROmorphone 1 MG/ML, 1ML INJ ONE (14:52)
[2021-01-14] MEDS: HYDROmorphone 1 MG/ML, 1ML INJ IVPush PRN ×2 (15:00→15:21)
[2021-01-14] MEDS ORDERED: LORazepam 2 MG/ML, 1ML ONE (15:25)
[2021-01-14] MEDS ORDERED: OXYC5TAB2 PO (18:47)
[2021-01-14 19:13] VITALS: BP 134/87
== END 2021-01-14 19:15 | disposition home or self-care (01) | DRG 563 ==
LOC: ED 21:52 → 4NE 22:26
PROVIDERS: ADMIT Orthopaedic Surgery; ATTEND Orthopaedic Surgery
PROC: 0PSGXZZ Reposition Left Humeral Shaft, External Approach (ICD-10-PCS; principal; 2021-01-14 10:30)
DX: S42.412A Displaced simple supracondylar fracture without intercondylar fracture of left humerus, initial encounter for closed fracture (principal); F17.200 Nicotine dependence, unspecified, uncomplicated; W07.XXXA Fall from chair, initial encounter; Z82.49 Family history of ischemic heart disease and other diseases of the circulatory system; Z80.9 Family history of malignant neoplasm, unspecified; Z87.442 Personal history of urinary calculi; Z90.710 Acquired absence of both cervix and uterus; Z83.3 Family history of diabetes mellitus; Y93.89 Activity, other specified; Y99.8 Other external cause status; Y92.009 Unspecified place in unspecified non-institutional (private) residence as the place of occurrence of the external cause
CPT/HCPCS: 36415; 73060; 73070; 73080; 76000; 96374; 96375; 99285; S0077; 80048; 81025; 82040; 85025; 87635; 93005; G0378; J0690; J1170; J1885; J2250; J2405; J2704; J2710; J3010; J0330; J2060